=== PATIENT | male | born 1970 | race Caucasian/White ===

== ENCOUNTER 2016-09-19 13:54 | Inpatient (IN) | payer MEDICARE ==
[2016-09-19 14:00] VITALS: BMI 32.3
--- NOTE | 2016-09-19 14:06 | C.PDOC ---
History Of Present Illness 46 year old patient, with a past medical history of anxiety, asthma, cardia arrhythmia, hypercholesterolemia, COPD, pneumonia, pulmonary embolism, and gall bladder disease, presents to the ED complaining of fatigue, gen weakness, and MATIAS worsening over the last couple weeks. Patient also complains of blood with stool for the past year, but denies any associated rectal pain. Patient had a colonoscopy 1 year ago which he says was normal. Also c/o rash for the past month. Patient developed an itchy rash to his groin and scrotum after coming back from [place] 1 month ago. Patient currently does not have a PMD. Patient denies fever, sweats, chest pain, dysuria, or drug use. Patient developed a pulmonary embolism when he was hospitalized a couple of years ago. Patient stopped talking Xarelto about 2 weeks ago. Time Seen by Provider: 09/19/16 14:05 Chief Complaint (Nursing): Weakness/Neurological Deficit History Per: Patient History/Exam Limitations: no limitations Onset/Duration Of Symptoms: Worse Since (today), Other (1 year) Current Symptoms Are (Timing): Still Present Severity: Mild Pain Scale Rating Of: 3 Recent travel outside of the [place]: No Past Medical History Reviewed: Historical Data, Nursing Documentation, Vital Signs Vital Signs: Last Vital Signs Temp 98.6 F 09/19/16 20:51 Pulse 105 H 09/19/16 20:51 Resp 20 09/19/16 20:51 BP 128/80 09/19/16 20:51 Pulse Ox 100 09/19/16 21:10 - Medical History PMH: Anxiety, Asthma, Cardia Arrhythmia, COPD, Gall Bladder Disease, Hypercholesterolemia, Pneumonia, Pulmonary Embolism Surgical History: Cholecystectomy - [facility] Procedures BONE GRAFT NEC (08/11/13) CENTRAL VENOUS CATHETER PLACEMENT WITH GUIDANCE (05/13/13) CLOSED ENDOSCOPIC BIOPSY OF LARGE INTESTINE (04/25/14) CONTINUOUS INVASIVE MECHANICAL VENTILATION =/>96 CONSEC HRS (05/13/13) ENDOSCOPIC BRONCHIAL BX (05/13/13) ENTERAL INFUSION OF CONCENTRATED NUT. SUBSTANCES (05/13/13) EXCISION INTERVERT DISC (08/11/13) FUSION/REFUS OF 2-3 VERTEBRAE (02/19/15) FUSION/REFUS OF 4-8 VERTEBRAE (08/11/13) INSERT ENDOTRACHEAL TUBE (11/16/13) NON-INVASIVE MECHANICAL VENTILATION (05/13/13) OTH CERVICAL FUSION OF ANTERIOR COLUMN, ANTERIOR TECHNIQUE (08/11/13) OTH CERVICAL FUSION OF POSTERIOR COLUMN, POSTERIOR TECHNIQUE (02/19/15) OTHER THERAPEUTIC APHERESIS (02/19/15) SPINAL CANAL EXPLOR NEC (02/19/15) Family History: States: No Known Family Hx - Social History Hx Tobacco Use: No Hx Alcohol Use: No Hx Substance Use: No - Immunization History Hx Tetanus Toxoid Vaccination: No Hx Influenza Vaccination: Yes Hx Pneumococcal Vaccination: Yes Review Of Systems Except As Marked, All Systems Reviewed And Found Negative. Constitutional: Negative for: Fever, Sweats Cardiovascular: Negative for: Chest Pain Respiratory: Positive for: Cough. Negative for: Shortness of Breath Gastrointestinal: Positive for: Other (blood with stool). Negative for: Rectal Pain Genitourinary: Negative for: Dysuria Skin: Positive for: Rash (to legs and back) Neurological: Positive for: Dizziness Physical Exam - Physical Exam Appears: Non-toxic, No Acute Distress Skin: Warm, Dry, Pale, Rash (erythematous on scrotum with satellite lesions in the growing area.) Head: Atraumatic, Normacephalic Eye(s): bilateral: Conjunctiva Pale Neck: Normal ROM, Supple Chest: Symmetrical Cardiovascular: Rhythm Regular (tachycardia) Respiratory: Normal Breath Sounds, No Rales, No Rhonchi, No Wheezing Gastrointestinal/Abdominal: Soft, No Tenderness, No Guarding, No Rebound Rectal: Other (no gross blood, no melena, no mass) Back: Normal Inspection, No CVA Tenderness Extremity: Normal ROM, No Deformity, Other (1+ pitting edema to ankles bilaterally) Neurological/Psych: Oriented x3, Normal Speech, Normal Cognition Gait: Steady ED Course And Treatment - Laboratory Results Result Diagrams: 09/19/16 15:16 09/19/16 15:16 O2 Sat by Pulse Oximetry: 100 (RA) Pulse Ox Interpretation: Normal Medical Decision Making Medical Decision Making: Plan: * Labs * Chest x-ray * EKG EKG: Sinus Tachycardia 104 bpm Normal axis. No acute ischemia Chest X-ray: Interpreted and Read by me nad Disc results w pt and rec for prbc transfusion- he agrees w plan. Case discussed with Dr. Duarte who is aware of the plan and will admit the patient. Disposition Discussed With Dr.: Misty Duarte Comment: He will admit the patient Doctor Will See Patient In The: Hospital Counseled Patient/Family Regarding: Studies Performed, Diagnosis - Disposition Disposition: HOSPITALIZED Disposition Time: 16:17 Condition: GUARDED - Clinical Impression Clinical Impression: Rectal bleeding, Acute blood loss anemia - Scribe Statement The provider has reviewed the documentation as recorded by the Scribe Nely Aguilar Provider Attestation: All medical record entries made by the Scribe were at my direction and personally dictated by me. I have reviewed the chart and agree that the record accurately reflects my personal performance of the history, physical exam, medical decision making, and the department course for this patient. I have also personally directed, reviewed, and agree with the discharge instructions and disposition.
[2016-09-19 15:31] LABS: CHLORIDE 99 mmol/L (98-107)
[2016-09-19 15:32] LABS: BASO % 0.5 % (0.0-2.0); EOS % 0.5 % (0.0-4.0); HEMATOCRIT 20.4 % (35.0-51.0); LYMPH # 1.5 K/uL (1.0-4.3); LYMPH % 19.2 % (20.0-40.0); MEAN CELL VOLUME 65.6 fL (80.0-94.0); MEAN CORPUSCULAR HEMOGLOBIN 18.9 pg (27.0-31.0); MEAN CORPUSCULAR HGB CONC 28.8 g/dL (33.0-37.0); MEAN PLATELET VOLUME 7.2 fL (7.2-11.7); MONO # 0.3 K/uL (0.0-0.8); NRBC % 0.1 % (0.0-2.0); PLATELET COUNT 277 K/uL (130-400); POTASSIUM 3.6 mmol/L (3.6-5.2); RED CELL DISTRIBUTION WIDTH 19.6 % (11.5-14.5); SODIUM 137 mmol/L (132-148); WHITE BLOOD COUNT 7.6 K/uL (4.8-10.8)
[2016-09-19 15:34] LABS: CARBON DIOXIDE 24 mmol/L (22-30); GFR AFRICAN-AMERICAN > 60
[2016-09-19 15:35] LABS: ALB/GLOB RATIO 1.3 (1.0-2.1); ALKALINE PHOSPHATASE 103 U/L (38-126); ALT/SGPT 34 U/L (21-72); AST/SGOT 37 U/L (17-59); BILIRUBIN,TOTAL 0.1 mg/dL (0.2-1.3); BLOOD UREA NITROGEN 9 mg/dL (9-20); CALCIUM 8.3 mg/dl (8.6-10.4); GLUCOSE,RANDOM 85 mg/dL (75-110); TOTAL PROTEIN 7.2 g/dL (6.3-8.3)
[2016-09-19 15:41] LABS: INR 1.2
[2016-09-19 16:18] LABS: URINE BILIRUBIN NEGATIVE (NEGATIVE); URINE BLOOD NEGATIVE (NEGATIVE); URINE COLOR Straw (YELLOW); URINE GLUCOSE (UA) NORMAL (Normal); URINE KETONE NEGATIVE (NEGATIVE); URINE LEUKOCYTE ESTERASE NEG Leu/uL (Negative); URINE PROTEIN NEGATIVE (NEGATIVE); URINE UROBILINOGEN NORMAL mg/dL (0.2-1.0); WBC URINE 1 /hpf (0-5)
[2016-09-19 16:33] LABS: IRON 22 ug/dL (49-181)
--- NOTE | 2016-09-19 16:58 | RAD ---
HISTORY: weak COMPARISON: 02/19/2015 TECHNIQUE: Chest PA and lateral FINDINGS: LUNGS: No infiltrate. Relative radiolucency of left dannielle thorax. Uncertain significance. PLEURA: No significant pleural effusion identified. No pneumothorax apparent. CARDIOVASCULAR: Normal. OSSEOUS STRUCTURES: No significant abnormalities. VISUALIZED UPPER ABDOMEN: Normal. OTHER FINDINGS: None. IMPRESSION: No acute infiltrate.
[2016-09-19] MEDS ORDERED: Albuterol HFA 90 mcg/actuation (8 g) INH PRN (17:16)
--- NOTE | 2016-09-19 17:26 | CP.PCM.HP ---
History of Present Illness - History of Present Illness History of Present Illness: 46 with asthma, pain, chronic rectal bleed admitted with symptomatic anemia, neg stool OB, chronic narcotics Present on Admission - Present on Admission Any Indicators Present on Admission: No Review of Systems - Constitutional Constitutional: Anorexia, Weakness - EENT Eyes: absent: Discharge Ears: absent: Dizziness Nose/Mouth/Throat: absent: Epistaxis - Cardiovascular Cardiovascular: absent: Acrocyanosis, Chest Pain, Diaphoresis, Palpitations, Syncope - Respiratory Respiratory: absent: Cough, Dyspnea, Hemoptysis - Gastrointestinal Gastrointestinal: absent: Abdominal Pain, Hematochezia - Genitourinary Genitourinary: absent: Change in Urinary Stream Past Patient History - Past Medical History & Family History Past Medical History?: Yes - Past Social History Smoking Status: Former Smoker - CARDIAC Hx Cardia Arrhythmia: Yes Hx Hypercholesterolemia: Yes - PULMONARY Hx Asthma: Yes Hx Chronic Obstructive Pulmonary Disease (COPD): Yes Hx Pneumonia: Yes Hx Pulmonary Embolism: Yes - NEUROLOGICAL Hx Neurological Disorder: Yes (COMATOSE 3 DAYS DUE TO PNEUMONIA APR 2013) - HEENT Hx HEENT Problems: No - RENAL Hx Chronic Kidney Disease: No - ENDOCRINE/METABOLIC Hx Endocrine Disorders: No - HEMATOLOGICAL/ONCOLOGICAL Hx Blood Disorders: No Other/Comment: Blood clots - INTEGUMENTARY Hx Dermatological Problems: No - MUSCULOSKELETAL/RHEUMATOLOGICAL Hx Musculoskeletal Disorders: Yes Hx Back Pain: Yes (CERVICAL SPINE FUSION) Hx Falls: No Hx Herniated Disk: Yes Other/Comment: HX: DISPLACEMENT OF LUMBAR DISC - GASTROINTESTINAL Hx Gall Bladder Disease: Yes - GENITOURINARY/GYNECOLOGICAL Hx Genitourinary Disorders: No - PSYCHIATRIC Hx Anxiety: Yes Hx Substance Use: No - SURGICAL HISTORY Hx Cholecystectomy: Yes - ANESTHESIA Hx Anesthesia: Yes Hx Anesthesia Reactions: No Hx Malignant Hyperthermia: No Meds Allergies/Adverse Reactions: Allergies Allergy/AdvReac Type Severity Reaction Status Date / Time No Known Allergies Allergy Verified 02/19/15 21:31 Physical Exam - Constitutional Appears: Non-toxic - Head Exam Head Exam: ATRAUMATIC - Eye Exam Eye Exam: EOMI - ENT Exam ENT Exam: Mucous Membranes Moist - Neck Exam Neck exam: Negative for: Lymphadenopathy, Thyromegaly - Respiratory Exam Respiratory Exam: Clear to Auscultation Bilateral - Cardiovascular Exam Cardiovascular Exam: REGULAR RHYTHM - GI/Abdominal Exam GI & Abdominal Exam: Normal Bowel Sounds. absent: Organomegaly - Rectal Exam Rectal Exam: Deferred - Extremities Exam Extremities exam: Positive for: normal capillary refill. Negative for: calf tenderness - Neurological Exam Neurological exam: Alert, Oriented x3 - Psychiatric Exam Psychiatric exam: Normal Mood - Skin Skin Exam: Dry Results - Vital Signs Recent Vital Signs: Last Vital Signs Temp 98.1 F 09/19/16 17:20 Pulse 104 H 09/19/16 17:20 Resp 20 09/19/16 17:20 BP 142/86 09/19/16 17:20 Pulse Ox 100 09/19/16 17:20 - Labs Result Diagrams: 09/20/16 07:09 09/19/16 15:16 Labs: Laboratory Results - last 24 hr 09/19/16 16:19 Iron 22 L TIBC 595 H % Saturation 4 L Ferritin 4.9 Assessment & Plan (1) Acute blood loss anemia Status: Acute (2) Rectal bleeding Status: Acute (3) Chronic obstructive lung disease Status: Chronic Decision To Admit - Pt Status Changed To: Hospital Disposition Of: Inpatient - Admit Certification Admit to Inpatient:: After my assessment, the patient will require hospitalization for at least two midnights. This is because of the severity of symptoms shown, intensity of services needed, and/or the medical risk in this patient being treated as an outpatient. - InPatient: Physician Admission Certification:: yes - . Bed Request Type: Regular
[2016-09-19] MEDS: Sodium Chloride 0.9% 1,000 ML IV SCH ×2 (19:42→21:53)
[2016-09-19] MEDS: Oxycodone/Acetaminophen 5/325 mg Tab PO PRN (20:45)
[2016-09-20] MEDS: HYDROmorphone 1 mg/ml ISec IVP PRN ×4 (00:47→22:22)
[2016-09-20] MEDS: Sodium Chloride 0.9% 1,000 ML IV SCH ×2 (03:30→13:36)
[2016-09-20] MEDS: Oxycodone/Acetaminophen 5/325 mg Tab PO PRN ×2 (05:34→13:34)
[2016-09-20 07:36] LABS: BASO # 0.1 K/uL (0.0-0.2); BASO % 0.7 % (0.0-2.0); EOS # 0.1 K/uL (0.0-0.7); EOS % 0.8 % (0.0-4.0); HEMATOCRIT 22.1 % (35.0-51.0); LYMPH # 1.4 K/uL (1.0-4.3); LYMPH % 16.5 % (20.0-40.0); MEAN CELL VOLUME 67.4 fL (80.0-94.0); MEAN CORPUSCULAR HEMOGLOBIN 20.2 pg (27.0-31.0); MONO # 0.3 K/uL (0.0-0.8); MONO % 3.4 % (0.0-10.0); NRBC % 0.1 % (0.0-2.0); WHITE BLOOD COUNT 8.2 K/uL (4.8-10.8)
--- NOTE | 2016-09-20 14:21 | CP.PCM.CON ---
<Reed Narvaez - Last Filed: 09/20/16 14:22> History of Present Illness - History of Present Illness History of Present Illness: PGY4 GI Fellow Consult Note Patient is a 46yo male with PMHx significant for pneumonia requiring intubation and extended ICU stay, COPD, HLD, PE previously on coumadin and xarelto (at separate times; nonadherent to both) who presented to the ED with generalized malaise. The patient states that for the past year he has been experiencing daily loose stool and rectal bleeding. He will have upwards of 3-4 episodes per day of watery diarrhea with bright red blood or will pass clots by themselves. He had been previously diagnosed with a PE following an extended hospitalization with pneumonia requiring mechanical ventilation and was placed on coumadin. He was nonadherent to this therapy and was eventually on xarelto ( approximately 4 months [employer]) but also was nonadherent to this as he was concerned over his persistent rectal bleeding. In the weeks leading up to admission, he became more and more fatigued along with noticing some weakness, dizziness, lightheadedness and shortness of breath with exertion and at rest. He denies any abdominal pain. Presently, the patient is very anxious, jittery and cannot sit still even to be examined, sitting and standing and pacing his room. He admits that he regularly uses Trazodone and has a history of anxiety. PMHx: See HPI PSHx: Cholecystectomy, spinal stenosis repair, PCI without intervention FHx: Denies Social: Quit smoking 2 years ago, 20 pack year history; occasional EtOH use, denies illicit drug use Endo: 03/2014 - Colonoscopy - Diverticulosis, hemorrhoids, hyperplastic rectal polyp Review of Systems - Constitutional Constitutional: Fatigue, Lethargy, Weakness. absent: Anorexia, Chills, Fever - EENT Eyes: absent: Change in Vision Nose/Mouth/Throat: absent: Sore Throat - Cardiovascular Cardiovascular: Dyspnea, Dyspnea on Exertion. absent: Chest Pain - Respiratory Respiratory: Dyspnea. absent: Cough, Excessive Mucous Production - Gastrointestinal Gastrointestinal: Hematochezia, Loose Stools, Nausea. absent: Abdominal Pain, Constipation, Cramping, Dyspepsia, Hematemesis, Melena, Odynophagia, Vomiting - Genitourinary Genitourinary: absent: Dysuria, Urinary Frequency, Urinary Urgency - Musculoskeletal Musculoskeletal: absent: Back Pain, Neck Pain - Integumentary Integumentary: absent: New Lesions, Rash - Neurological Neurological: absent: Dizziness, Numbness, Focal Weakness - Psychiatric Psychiatric: absent: Anxiety, Depression - Endocrine Endocrine: absent: Polydipsia, Polyphagia, Polyuria - Hematologic/Lymphatic Hematologic: absent: Easy Bleeding, Easy Bruising, Lymphadenopathy Past Patient History - Past Medical History & Family History Past Medical History?: Yes - Past Social History Smoking Status: Former Smoker - CARDIAC Hx Cardia Arrhythmia: Yes Hx Hypercholesterolemia: Yes - PULMONARY Hx Asthma: Yes Hx Chronic Obstructive Pulmonary Disease (COPD): Yes Hx Pneumonia: Yes Hx Pulmonary Embolism: Yes - NEUROLOGICAL Hx Neurological Disorder: Yes (COMATOSE > a month DUE TO PNEUMONIA APR 2013) - HEENT Hx HEENT Problems: No - RENAL Hx Chronic Kidney Disease: No - ENDOCRINE/METABOLIC Hx Endocrine Disorders: No - HEMATOLOGICAL/ONCOLOGICAL Hx Blood Disorders: No Other/Comment: Blood clots - INTEGUMENTARY Hx Dermatological Problems: No - MUSCULOSKELETAL/RHEUMATOLOGICAL Hx Musculoskeletal Disorders: Yes Hx Back Pain: Yes (CERVICAL SPINE FUSION) Hx Falls: No Hx Herniated Disk: Yes Other/Comment: HX: DISPLACEMENT OF LUMBAR DISC - GASTROINTESTINAL Hx Gall Bladder Disease: Yes - GENITOURINARY/GYNECOLOGICAL Hx Genitourinary Disorders: No - PSYCHIATRIC Hx Anxiety: Yes Hx Substance Use: No - SURGICAL HISTORY Hx Cholecystectomy: Yes (2009) - ANESTHESIA Hx Anesthesia: Yes Hx Anesthesia Reactions: No Hx Malignant Hyperthermia: No Meds Allergies/Adverse Reactions: Allergies Allergy/AdvReac Type Severity Reaction Status Date / Time No Known Allergies Allergy Verified 02/19/15 21:31 - Medications Medications: Current Medications Acetaminophen (Tylenol 325mg Tab) 650 mg PO Q6 PRN PRN Reason: Fever >100.4 F Albuterol (Ventolin Hfa 90 Mcg/Actuation (8 G)) 2 puff INH Q4H PRN PRN Reason: Shortness of Breath Last Admin: 09/20/16 14:05 Dose: 2 puff Docusate Sodium (Colace) 100 mg PO BID [facility]IEL Last Admin: 09/20/16 09:59 Dose: Not Given Hydromorphone HCl (Dilaudid) 1 mg IVP Q6H PRN PRN Reason: Pain, severe (8-10) Last Admin: 09/20/16 09:58 Dose: 1 mg Sodium Chloride (Sodium Chloride 0.9%) 1,000 mls @ 100 mls/hr IV .Q10H [facility]IEL Last Admin: 09/20/16 13:36 Dose: 100 mls/hr Ondansetron HCl (Zofran Inj) 4 mg IVP Q6 PRN PRN Reason: Nausea/Vomiting Oxycodone/Acetaminophen (Percocet 5/325 Mg Tab) 1 tab PO Q4 PRN PRN Reason: Pain, moderate (4-7) Stop: 09/22/16 17:18 Last Admin: 09/20/16 13:34 Dose: 1 tab Fluticasone/Salmeterol (Advair Diskus 250/50) 1 puff IH RBID [facility] Sucralfate (Carafate Tab) 1 gm PO BID [facility] Last Admin: 09/20/16 09:59 Dose: 1 gm Physical Exam - Constitutional Appears: Non-toxic, No Acute Distress - Eye Exam Eye Exam: EOMI, PERRL - ENT Exam ENT Exam: Mucous Membranes Moist - Respiratory Exam Respiratory Exam: Clear to Auscultation Bilateral. absent: Rales, Rhonchi, Wheezes - Cardiovascular Exam Cardiovascular Exam: RRR, +S1, +S2 - GI/Abdominal Exam GI & Abdominal Exam: Distended, Normal Bowel Sounds, Soft. absent: Firm, Guarding, Organomegaly, Rigid, Tenderness - Rectal Exam Rectal Exam: Hemorrhoids (internal). absent: Black Stool, Bloody Stool - Extremities Exam Extremities exam: Positive for: normal inspection. Negative for: pedal edema - Neurological Exam Neurological exam: Alert, Oriented x3 - Psychiatric Exam Psychiatric exam: Anxious - Skin Skin Exam: Dry, Warm Results - Vital Signs Recent Vital Signs: Last Vital Signs Temp 98 F 09/20/16 08:00 Pulse 90 09/20/16 11:36 Resp 20 09/20/16 08:00 BP 126/70 09/20/16 08:00 Pulse Ox 97 09/20/16 08:00 - Labs Result Diagrams: 09/20/16 07:09 09/19/16 15:16 Labs: Laboratory Results - last 24 hr 09/19/16 09/20/16 16:19 07:09 WBC 8.2 RBC 3.28 L Hgb 6.6 L Hct 22.1 L MCV 67.4 L MCH 20.2 L MCHC 30.0 L RDW 21.0 H Plt Count 296 MPV 8.0 Neut % (Auto) 78.6 H Lymph % (Auto) 16.5 L [place] % (Auto) 3.4 Eos % (Auto) 0.8 Baso % (Auto) 0.7 Neut # 6.5 Lymph # 1.4 [place] # 0.3 Eos # 0.1 Baso # 0.1 Iron 22 L TIBC 595 H % Saturation 4 L Ferritin 4.9 Assessment & Plan - Assessment and Plan (Free Text) Assessment: Patient is a 46yo male with PMHx significant for pneumonia requiring intubation and extended ICU stay, COPD, HLD, PE previously on coumadin and xarelto (at separate times; nonadherent to both) who presented to the ED with generalized malaise. -Symptomatic anemia -Subjective hematochezia -Diverticulosis -Anxiety -COPD -H/O provoked PE requiring antcoagulation Plan: -S/P 1 unit PRBc with improvement in HGB -Will order two more units to be transfused at standard rate -Patient to be kept NPO past MN for EGD in AM -Monitor for any further episodes of hematochezia -Patient would benefit from resuming his home medications for anxiety/sleep - Date & Time Date: 09/20/16 Time: 12:10 <Jeffrey Irving - Last Filed: 09/20/16 14:43> Meds - Medications Medications: Current Medications Acetaminophen (Tylenol 325mg Tab) 650 mg PO Q6 PRN PRN Reason: Fever >100.4 F Albuterol (Ventolin Hfa 90 Mcg/Actuation (8 G)) 2 puff INH Q4H PRN PRN Reason: Shortness of Breath Last Admin: 09/20/16 14:05 Dose: 2 puff Docusate Sodium (Colace) 100 mg PO BID ELIEL Last Admin: 09/20/16 09:59 Dose: Not Given Hydromorphone HCl (Dilaudid) 1 mg IVP Q6H PRN PRN Reason: Pain, severe (8-10) Last Admin: 09/20/16 09:58 Dose: 1 mg Sodium Chloride (Sodium Chloride 0.9%) 1,000 mls @ 100 mls/hr IV .Q10H ELIEL Last Admin: 09/20/16 13:36 Dose: 100 mls/hr Ondansetron HCl (Zofran Inj) 4 mg IVP Q6 PRN PRN Reason: Nausea/Vomiting Oxycodone/Acetaminophen (Percocet 5/325 Mg Tab) 1 tab PO Q4 PRN PRN Reason: Pain, moderate (4-7) Stop: 09/22/16 17:18 Last Admin: 09/20/16 13:34 Dose: 1 tab Fluticasone/Salmeterol (Advair Diskus 250/50) 1 puff IH RBID [facility] Sucralfate (Carafate Tab) 1 gm PO BID [facility] Last Admin: 09/20/16 09:59 Dose: 1 gm Results - Vital Signs Recent Vital Signs: Last Vital Signs Temp 98 F 09/20/16 08:00 Pulse 90 09/20/16 11:36 Resp 20 09/20/16 08:00 BP 126/70 09/20/16 08:00 Pulse Ox 97 09/20/16 08:00 - Labs Result Diagrams: 09/20/16 07:09 09/19/16 15:16 Labs: Laboratory Results - last 24 hr 09/19/16 09/20/16 16:19 07:09 WBC 8.2 RBC 3.28 L Hgb 6.6 L Hct 22.1 L MCV 67.4 L MCH 20.2 L MCHC 30.0 L RDW 21.0 H Plt Count 296 MPV 8.0 Neut % (Auto) 78.6 H Lymph % (Auto) 16.5 L [place] % (Auto) 3.4 Eos % (Auto) 0.8 Baso % (Auto) 0.7 Neut # 6.5 Lymph # 1.4 [place] # 0.3 Eos # 0.1 Baso # 0.1 Iron 22 L TIBC 595 H % Saturation 4 L Ferritin 4.9 Attending/Attestation - Attestation I have personally seen and examined this patient.: Yes I have fully participated in the care of the patient.: Yes I have reviewed all pertinent clinical information: Yes Notes (Text): Patient seen and examined with GI fellow. Agree with his note as documented above with the following additions/exceptions. This is a 46 year old male with h/o COPD, PE (previously on coumadin/xarelto, last taken 3 weeks ago), HL, spinal stenosis, diverticulosis who is admitted with severe symptomatic anemia and rectal bleeding. He also complains of intermittent abdominal pain and has history of NSAID usage. Last colonoscopy 2013 showed diverticulosis and hemorrhoids. He has never had prior upper endoscopy. Last known Hb here 15 in 2014, now 6. He has microcytic, iron deficiency anemia. He has no active blood noted on rectal examination. Would recommend PRBC transfusion, monitor H/ H. PPI daily. Keep NPO p MN for EGD tomorrow. 09/20/16 14:38
[2016-09-20] MEDS: Pantoprazole 40 mg EC Tab PO SCH (17:25)
[2016-09-20 17:28] VITALS: RESP 20
[2016-09-20] MEDS ORDERED: Fluticasone-Salmeterol 250-50mcg Diskus IH SCH (20:00)
--- NOTE | 2016-09-20 23:58 | CP.PCM.PN ---
Subjective - Date & Time of Evaluation Date of Evaluation: 09/20/16 Time of Evaluation: 14:00 - Subjective Subjective: seen by GI for endoscopy Objective - Vital Signs/Intake and Output Vital Signs (last 24 hours): Temp Pulse Resp BP Pulse Ox 97.9 F 106 H 20 131/83 95 09/20/16 22:17 09/20/16 22:17 09/20/16 22:17 09/20/16 22:17 09/20/16 16:00 Intake and Output: 09/20/16 09/21/16 18:59 06:59 Intake Total 1300 1325 Balance 1300 1325 - Medications Medications: Current Medications Acetaminophen (Tylenol 325mg Tab) 650 mg PO Q6 PRN PRN Reason: Fever >100.4 F Albuterol (Ventolin Hfa 90 Mcg/Actuation (8 G)) 2 puff INH Q4H PRN PRN Reason: Shortness of Breath Last Admin: 09/20/16 14:05 Dose: 2 puff Docusate Sodium (Colace) 100 mg PO BID [facility] Last Admin: 09/20/16 17:25 Dose: Not Given Hydromorphone HCl (Dilaudid) 1 mg IVP Q6H PRN PRN Reason: Pain, severe (8-10) Last Admin: 09/20/16 22:22 Dose: 1 mg Sodium Chloride (Sodium Chloride 0.9%) 1,000 mls @ 100 mls/hr IV .Q10H [facility] Last Admin: 09/20/16 13:36 Dose: 100 mls/hr Ondansetron HCl (Zofran Inj) 4 mg IVP Q6 PRN PRN Reason: Nausea/Vomiting Oxycodone/Acetaminophen (Percocet 5/325 Mg Tab) 1 tab PO Q4 PRN PRN Reason: Pain, moderate (4-7) Stop: 09/22/16 17:18 Last Admin: 09/20/16 13:34 Dose: 1 tab Pantoprazole Sodium (Protonix Ec Tab) 40 mg PO DAILY [facility] Last Admin: 09/20/16 17:25 Dose: 40 mg Fluticasone/Salmeterol (Advair Diskus 250/50) 1 puff IH RBID [facility] Sucralfate (Carafate Tab) 1 gm PO BID [facility] Last Admin: 03/26/17 09:59 Dose: 1 gm - Labs Labs: 09/20/16 07:09 PT 13.2 SECONDS (9.7-12.2) H 09/19/16 15:16 INR 1.2 09/19/16 15:16 APTT 26 SECONDS (21-34) 09/19/16 15:16 - Constitutional Appears: Non-toxic - Head Exam Head Exam: ATRAUMATIC - Eye Exam Eye Exam: EOMI - ENT Exam ENT Exam: Mucous Membranes Moist - Neck Exam Neck Exam: absent: Lymphadenopathy, Thyromegaly - Respiratory Exam Respiratory Exam: Clear to Ausculation Bilateral. absent: Rales - Cardiovascular Exam Cardiovascular Exam: REGULAR RHYTHM. absent: Murmur - GI/Abdominal Exam GI & Abdominal Exam: Normal Bowel Sounds. absent: Organomegaly - Rectal Exam Rectal Exam: Deferred - Extremities Exam Extremities Exam: Normal Capillary Refill. absent: Calf Tenderness - Neurological Exam Neurological Exam: Alert, Oriented x3 - Psychiatric Exam Psychiatric exam: Normal Mood - Skin Skin Exam: Dry Assessment and Plan (1) Acute blood loss anemia Status: Acute (2) Rectal bleeding Status: Acute (3) Chronic obstructive lung disease Status: Chronic
[2016-09-21] MEDS: Sodium Chloride 0.9% 1,000 ML IV SCH ×3 (00:50→13:59)
[2016-09-21] MEDS: HYDROmorphone 1 mg/ml ISec IVP PRN ×3 (06:12→18:45)
[2016-09-21] MEDS: Pantoprazole 40 mg EC Tab PO SCH (10:55)
[2016-09-21] MEDS ORDERED: Propofol 10 mg/ml Inj (20 ML) ONE (11:21)
[2016-09-21] MEDS ORDERED: Lactated Ringer's 500 ML IV ONE ×2 (11:22)
[2016-09-21] MEDS ORDERED: Lactated Ringer's 1,000 ML IV SCH (11:30)
[2016-09-21] MEDS ORDERED: Lidocaine Hydrochloride 5 ML INJ ONE (11:35)
--- NOTE | 2016-09-21 12:07 | CP.PCM.PN ---
Subjective - Date & Time of Evaluation Date of Evaluation: 09/21/16 Time of Evaluation: 12:00 - Subjective Subjective: Hemoglobin up to 6.6 after transfusion, seen by GI for endoscopy. With pain on narcotics Objective - Vital Signs/Intake and Output Vital Signs (last 24 hours): Temp Pulse Resp BP Pulse Ox 98 F 94 H 20 135/85 96 09/21/16 00:53 09/21/16 00:53 09/21/16 00:53 09/21/16 00:53 09/21/16 00:25 Intake and Output: 09/21/16 09/21/16 06:59 18:59 Intake Total 2675 Balance 2675 - Medications Medications: Current Medications Acetaminophen (Tylenol 325mg Tab) 650 mg PO Q6 PRN PRN Reason: Fever >100.4 F Albuterol (Ventolin Hfa 90 Mcg/Actuation (8 G)) 2 puff INH Q4H PRN PRN Reason: Shortness of Breath Last Admin: 09/20/16 14:05 Dose: 2 puff Bisacodyl (Dulcolax) 10 mg PO ONCE ONE Stop: 09/21/16 16:01 Docusate Sodium (Colace) 100 mg PO BID [facility] Last Admin: 09/21/16 10:55 Dose: Not Given Hydromorphone HCl (Dilaudid) 1 mg IVP Q6H PRN PRN Reason: Pain, severe (8-10) Last Admin: 09/21/16 06:12 Dose: 1 mg Sodium Chloride (Sodium Chloride 0.9%) 1,000 mls @ 100 mls/hr IV .Q10H [facility] Last Admin: 09/21/16 10:56 Dose: Not Given Lactated Ringer's (Lactated Ringer's) 1,000 mls @ 100 mls/hr IV .Q10H [facility] Ondansetron HCl (Zofran Inj) 4 mg IVP Q6 PRN PRN Reason: Nausea/Vomiting Oxycodone/Acetaminophen (Percocet 5/325 Mg Tab) 1 tab PO Q4 PRN PRN Reason: Pain, moderate (4-7) Stop: 09/22/16 17:18 Last Admin: 09/20/16 13:34 Dose: 1 tab Pantoprazole Sodium (Protonix Ec Tab) 40 mg PO DAILY [facility] Last Admin: 09/21/16 10:55 Dose: Not Given Polyethylene Glycol/Electrolytes (Golytely) 4,000 ml PO ONCE ONE Stop: 09/21/16 18:01 Fluticasone/Salmeterol (Advair Diskus 250/50) 1 puff IH RBID [facility] Sucralfate (Carafate Tab) 1 gm PO BID [facility] Last Admin: 09/20/16 09:59 Dose: 1 gm - Labs Labs: 09/20/16 07:09 PT 13.2 SECONDS (9.7-12.2) H 09/19/16 15:16 INR 1.2 09/19/16 15:16 APTT 26 SECONDS (21-34) 09/19/16 15:16 - Constitutional Appears: Non-toxic - Head Exam Head Exam: ATRAUMATIC - Eye Exam Eye Exam: EOMI - ENT Exam ENT Exam: Mucous Membranes Moist - Neck Exam Neck Exam: absent: Lymphadenopathy, Thyromegaly - Respiratory Exam Respiratory Exam: Clear to Ausculation Bilateral. absent: Rales - Cardiovascular Exam Cardiovascular Exam: REGULAR RHYTHM, Murmur - GI/Abdominal Exam GI & Abdominal Exam: Normal Bowel Sounds. absent: Organomegaly - Rectal Exam Rectal Exam: Deferred - Neurological Exam Neurological Exam: Alert, Oriented x3 - Psychiatric Exam Psychiatric exam: Normal Mood - Skin Skin Exam: Dry Assessment and Plan (1) Acute blood loss anemia Status: Acute (2) Rectal bleeding Status: Acute (3) Chronic obstructive lung disease Status: Chronic
[2016-09-21 14:20] LABS: BASO % 0.3 % (0.0-2.0); EOS # 0.1 K/uL (0.0-0.7); EOS % 1.1 % (0.0-4.0); HEMATOCRIT 28.3 % (35.0-51.0); LYMPH # 1.3 K/uL (1.0-4.3); LYMPH % 16.8 % (20.0-40.0); MEAN CORPUSCULAR HEMOGLOBIN 21.2 pg (27.0-31.0); MEAN CORPUSCULAR HGB CONC 30.2 g/dL (33.0-37.0); MEAN PLATELET VOLUME 7.7 fL (7.2-11.7); MONO # 0.3 K/uL (0.0-0.8); MONO % 3.5 % (0.0-10.0); NRBC % 0.2 % (0.0-2.0); RED CELL DISTRIBUTION WIDTH 22.5 % (11.5-14.5)
[2016-09-21 14:27] LABS: CHLORIDE 94 mmol/L (98-107)
[2016-09-21 14:28] LABS: POTASSIUM 3.8 mmol/L (3.6-5.2); SODIUM 135 mmol/L (132-148)
[2016-09-21 14:29] LABS: MEAN CELL VOLUME 70.4 fL (80.0-94.0)
[2016-09-21 14:30] LABS: ALB/GLOB RATIO 1.2 (1.0-2.1); ALKALINE PHOSPHATASE 123 U/L (38-126); AST/SGOT 41 U/L (17-59); BILIRUBIN,TOTAL 0.4 mg/dL (0.2-1.3); BLOOD UREA NITROGEN 10 mg/dL (9-20); CARBON DIOXIDE 24 mmol/L (22-30); GFR AFRICAN-AMERICAN > 60; TOTAL PROTEIN 7.4 g/dL (6.3-8.3)
[2016-09-21 14:31] LABS: ALT/SGPT 34 U/L (21-72); CALCIUM 8.5 mg/dl (8.6-10.4); GLUCOSE,RANDOM 137 mg/dL (75-110)
[2016-09-21] MEDS ORDERED: Bisacodyl 5mg EC Tab PO ONE (16:00)
[2016-09-21] MEDS: Oxycodone/Acetaminophen 5/325 mg Tab PO PRN (16:03)
[2016-09-21] MEDS ORDERED: Peg-Electrolyte Oral Soln 4L (Golytely) PO ONE (18:00)
[2016-09-22] MEDS: HYDROmorphone 1 mg/ml ISec IVP PRN ×3 (01:03→16:50)
[2016-09-22] MEDS: Sodium Chloride 0.9% 1,000 ML IV SCH ×2 (01:07→10:47)
[2016-09-22 07:37] LABS: BASO # 0.1 K/uL (0.0-0.2); BASO % 0.7 % (0.0-2.0); EOS # 0.1 K/uL (0.0-0.7); EOS % 1.2 % (0.0-4.0); HEMATOCRIT 26.3 % (35.0-51.0); LYMPH # 1.2 K/uL (1.0-4.3); MEAN CELL VOLUME 70.6 fL (80.0-94.0); MEAN CORPUSCULAR HEMOGLOBIN 21.6 pg (27.0-31.0); MEAN CORPUSCULAR HGB CONC 30.6 g/dL (33.0-37.0); MEAN PLATELET VOLUME 7.8 fL (7.2-11.7); MONO # 0.2 K/uL (0.0-0.8); MONO % 3.3 % (0.0-10.0); RED CELL DISTRIBUTION WIDTH 22.9 % (11.5-14.5); WHITE BLOOD COUNT 6.9 K/uL (4.8-10.8)
[2016-09-22 07:45] LABS: CHLORIDE 96 mmol/L (98-107)
[2016-09-22 07:46] LABS: INR 1.1; POTASSIUM 4.1 mmol/L (3.6-5.2); SODIUM 137 mmol/L (132-148)
[2016-09-22 07:48] LABS: GFR AFRICAN-AMERICAN > 60
[2016-09-22 07:49] LABS: ALB/GLOB RATIO 1.2 (1.0-2.1); ALKALINE PHOSPHATASE 117 U/L (38-126); ALT/SGPT 37 U/L (21-72); AST/SGOT 46 U/L (17-59); BILIRUBIN,TOTAL 0.2 mg/dL (0.2-1.3); BLOOD UREA NITROGEN 9 mg/dL (9-20); CALCIUM 8.7 mg/dl (8.6-10.4); CARBON DIOXIDE 27 mmol/L (22-30); GLUCOSE,RANDOM 118 mg/dL (75-110); TOTAL PROTEIN 6.8 g/dL (6.3-8.3)
[2016-09-22] MEDS: Pantoprazole 40 mg EC Tab PO SCH (10:36)
[2016-09-22] MEDS ORDERED: Propofol 10 mg/ml Inj (20 ML) ONE (11:55)
[2016-09-22] MEDS ORDERED: Midazolam 2 MG/2 ML VIAL ONE (11:55)
--- NOTE | 2016-09-22 12:25 | CP.PCM.PN ---
Subjective - Date & Time of Evaluation Date of Evaluation: 09/22/16 Time of Evaluation: 12:00 - Subjective Subjective: Hemoglobin up to 8, follow-up with GI, endoscopy is unremarkable no evidence of bleed, questionable need for colonoscopy Objective - Vital Signs/Intake and Output Vital Signs (last 24 hours): Temp Pulse Resp BP Pulse Ox 97.5 F L 99 H 20 143/77 97 09/22/16 08:26 09/22/16 08:26 09/22/16 08:26 09/22/16 08:26 09/22/16 08:26 Intake and Output: 09/22/16 09/22/16 06:59 18:59 Intake Total 1600 250 Balance 1600 250 - Medications Medications: Current Medications Acetaminophen (Tylenol 325mg Tab) 650 mg PO Q6 PRN PRN Reason: Fever >100.4 F Albuterol (Ventolin Hfa 90 Mcg/Actuation (8 G)) 2 puff INH Q4H PRN PRN Reason: Shortness of Breath Last Admin: 09/20/16 14:05 Dose: 2 puff Docusate Sodium (Colace) 100 mg PO BID [facility] Last Admin: 09/22/16 10:36 Dose: Not Given Hydromorphone HCl (Dilaudid) 1 mg IVP Q6H PRN PRN Reason: Pain, severe (8-10) Last Admin: 09/22/16 10:50 Dose: 1 mg Sodium Chloride (Sodium Chloride 0.9%) 1,000 mls @ 100 mls/hr IV .Q10H [facility] Last Admin: 09/22/16 10:47 Dose: 100 mls/hr Lactated Ringer's (Lactated Ringer's) 1,000 mls @ 100 mls/hr IV .Q10H [facility] Ondansetron HCl (Zofran Inj) 4 mg IVP Q6 PRN PRN Reason: Nausea/Vomiting Last Admin: 09/21/16 22:37 Dose: 4 mg Oxycodone/Acetaminophen (Percocet 5/325 Mg Tab) 1 tab PO Q4 PRN PRN Reason: Pain, moderate (4-7) Stop: 09/22/16 17:18 Last Admin: 09/21/16 16:03 Dose: 1 tab Pantoprazole Sodium (Protonix Ec Tab) 40 mg PO DAILY [facility] Last Admin: 09/22/16 10:36 Dose: Not Given Fluticasone/Salmeterol (Advair Diskus 250/50) 1 puff IH RBID [facility] Sucralfate (Carafate Tab) 1 gm PO BID [facility] Last Admin: 09/20/16 09:59 Dose: 1 gm - Labs Labs: 09/22/16 07:17 09/22/16 07:17 PT 13.0 SECONDS (9.7-12.2) H 09/22/16 07:17 INR 1.1 09/22/16 07:17 APTT 26 SECONDS (21-34) 09/19/16 15:16 - Constitutional Appears: Non-toxic - Head Exam Head Exam: ATRAUMATIC - Eye Exam Eye Exam: EOMI - ENT Exam ENT Exam: Mucous Membranes Moist - Neck Exam Neck Exam: absent: Lymphadenopathy, Thyromegaly - Respiratory Exam Respiratory Exam: Clear to Ausculation Bilateral. absent: Rales - Cardiovascular Exam Cardiovascular Exam: REGULAR RHYTHM. absent: Murmur - GI/Abdominal Exam GI & Abdominal Exam: Normal Bowel Sounds. absent: Organomegaly - Rectal Exam Rectal Exam: Deferred - Extremities Exam Extremities Exam: Normal Capillary Refill. absent: Calf Tenderness - Neurological Exam Neurological Exam: Alert, Oriented x3 - Psychiatric Exam Psychiatric exam: Normal Mood - Skin Skin Exam: Dry Assessment and Plan (1) Acute blood loss anemia Status: Acute (2) Rectal bleeding Status: Acute (3) Chronic obstructive lung disease Status: Chronic
[2016-09-22 17:17] VITALS: O2SAT 95
--- NOTE | 2016-09-22 19:16 | CP.PCM.DIS ---
Provider - Provider Date of Admission: 09/19/16 16:17 Attending physician: Misty Duarte MD Time Spent in preparation of Discharge (in minutes): 20 Diagnosis - Discharge Diagnosis (1) Acute blood loss anemia Status: Acute (2) Rectal bleeding Status: Acute (3) Chronic obstructive lung disease Status: Chronic Hospital Course - Lab Results Lab Results: Most Recent Lab Values WBC 6.9 K/uL (4.8-10.8) 09/22/16 07:17 RBC 3.73 Mil/uL (4.40-5.90) L 09/22/16 07:17 Hgb 8.0 g/dL (12.0-18.0) L 09/22/16 07:17 Hct 26.3 % (35.0-51.0) L 09/22/16 07:17 MCV 70.6 fL (80.0-94.0) L 09/22/16 07:17 MCH 21.6 pg (27.0-31.0) L 09/22/16 07:17 MCHC 30.6 g/dL (33.0-37.0) L 09/22/16 07:17 RDW 22.9 % (11.5-14.5) H 09/22/16 07:17 Plt Count 264 K/uL (130-400) 09/22/16 07:17 MPV 7.8 fL (7.2-11.7) 09/22/16 07:17 Neut % (Auto) 77.8 % (50.0-75.0) H 09/22/16 07:17 Lymph % (Auto) 17.0 % (20.0-40.0) L 09/22/16 07:17 [place] % (Auto) 3.3 % (0.0-10.0) 09/22/16 07:17 Eos % (Auto) 1.2 % (0.0-4.0) 09/22/16 07:17 Baso % (Auto) 0.7 % (0.0-2.0) 09/22/16 07:17 Neut # 5.3 K/uL (1.8-7.0) 09/22/16 07:17 Lymph # 1.2 K/uL (1.0-4.3) 09/22/16 07:17 [place] # 0.2 K/uL (0.0-0.8) 09/22/16 07:17 Eos # 0.1 K/uL (0.0-0.7) 09/22/16 07:17 Baso # 0.1 K/uL (0.0-0.2) 09/22/16 07:17 Differential Comment Y 09/19/16 15:16 PT 13.0 SECONDS (9.7-12.2) H 09/22/16 07:17 INR 1.1 09/22/16 07:17 APTT 26 SECONDS (21-34) 09/19/16 15:16 Sodium 137 mmol/L (132-148) 09/22/16 07:17 Potassium 4.1 mmol/L (3.6-5.2) 09/22/16 07:17 Chloride 96 mmol/L (98-107) L 09/22/16 07:17 Carbon Dioxide 27 mmol/L (22-30) 09/22/16 07:17 Anion Gap 17 (10-20) 09/22/16 07:17 BUN 9 mg/dL (9-20) 09/22/16 07:17 Creatinine 0.8 MG/DL (0.8-1.5) 09/22/16 07:17 Est GFR ( Amer) > 60 09/22/16 07:17 Est GFR (Non-Af Amer) > 60 09/22/16 07:17 Random Glucose 118 mg/dL (75-110) H 09/22/16 07:17 Calcium 8.7 mg/dl (8.6-10.4) 09/22/16 07:17 Iron 22 ug/dL (49-181) L 09/19/16 16:19 TIBC 595 ug/dL (250-450) H 09/19/16 16:19 % Saturation 4 (20-55) L 09/19/16 16:19 Ferritin 4.9 ng/mL 09/19/16 16:19 Total Bilirubin 0.2 mg/dL (0.2-1.3) 09/22/16 07:17 AST 46 U/L (17-59) 09/22/16 07:17 ALT 37 U/L (21-72) 09/22/16 07:17 Alkaline Phosphatase 117 U/L (38-126) 09/22/16 07:17 Troponin I < 0.0120 ng/mL (0.00-0.120) 09/19/16 15:16 Total Protein 6.8 g/dL (6.3-8.3) 09/22/16 07:17 Albumin 3.8 g/dL (3.5-5.0) 09/22/16 07:17 Globulin 3.0 gm/dL (2.2-3.9) 09/22/16 07:17 Albumin/Globulin Ratio 1.2 (1.0-2.1) 09/22/16 07:17 Urine Color Straw (YELLOW) 09/19/16 15:58 Urine Clarity Clear (Clear) 09/19/16 15:58 Urine pH 5.0 (5.0-8.0) 09/19/16 15:58 Ur Specific [place] 1.015 (1.003-1.030) 09/19/16 15:58 Urine Protein Negative mg/dL (NEGATIVE) 09/19/16 15:58 Urine Glucose (UA) Normal mg/dL (Normal) 09/19/16 15:58 Urine Ketones Negative mg/dL (NEGATIVE) 09/19/16 15:58 Urine Blood Negative (NEGATIVE) 09/19/16 15:58 Urine Nitrate Negative (NEGATIVE) 09/19/16 15:58 Urine Bilirubin Negative (NEGATIVE) 09/19/16 15:58 Urine Urobilinogen Normal mg/dL (0.2-1.0) 09/19/16 15:58 Ur Leukocyte Esterase Neg [place]/uL (Negative) 09/19/16 15:58 Urine WBC (Auto) 1 /hpf (0-5) 09/19/16 15:58 Ur Squamous Epith Cells < 1 /hpf (0-5) 09/19/16 15:58 Stool Occult Blood Negative (NEGATIVE) 09/19/16 15:24 Blood Type A POSITIVE 09/22/16 14:52 Antibody Screen Negative 09/22/16 14:52 - Hospital Course Hospital Course: 46 admitted with anemia, reported neg prior colonoscopy. seen by GI transfused stable hemodynamically, EGD ok poor prep for colon, to f/u as outpt Discharge Exam - Head Exam Head Exam: ATRAUMATIC - Eye Exam Eye Exam: EOMI - ENT Exam ENT Exam: Mucous Membranes Moist - Neck Exam Neck exam: Full Rom - Respiratory Exam Respiratory Exam: NORMAL BREATHING PATTERN. absent: Rales - Cardiovascular Exam Cardiovascular Exam: REGULAR RHYTHM - GI/Abdominal Exam GI & Abdominal Exam: Normal Bowel Sounds. absent: Organomegaly - Rectal Exam Rectal Exam: Deferred - Extremities Exam Extremities exam: normal capillary refill - Neurological Exam Neurological exam: Alert, Oriented x3 - Psychiatric Exam Psychiatric exam: Normal Mood - Skin Skin Exam: Dry Discharge Plan - Follow Up Plan Condition: GUARDED Disposition: HOME/ ROUTINE
[2016-09-22 21:06] VITALS: BP 141/82; PULSE 98; TEMP 98.2
== END 2016-09-22 21:25 | disposition home or self-care (01) | DRG 378 ==
LOC: C.ER 13:54 → C.9E 16:17 → C.3T 18:02
PROVIDERS: ADMIT Internal Medicine Cardiovascular Disease; ATTEND Internal Medicine Cardiovascular Disease
PROC: 30233N1 Transfusion of Nonautologous Red Blood Cells into Peripheral Vein, Percutaneous Approach (ICD-10-PCS; 2016-09-19)
PROC: 0DB68ZX Excision of Stomach, Via Natural or Artificial Opening Endoscopic, Diagnostic (ICD-10-PCS; 2016-09-21)
PROC: 0DB98ZX Excision of Duodenum, Via Natural or Artificial Opening Endoscopic, Diagnostic (ICD-10-PCS; principal; 2016-09-21 11:15)
PROC: 0DJD8ZZ Inspection of Lower Intestinal Tract, Via Natural or Artificial Opening Endoscopic (ICD-10-PCS; 2016-09-22)
DX: K62.5 Hemorrhage of anus and rectum (principal); D62 Acute posthemorrhagic anemia; J44.9 Chronic obstructive pulmonary disease, unspecified; K29.60 Other gastritis without bleeding; K31.89 Other diseases of stomach and duodenum; K64.8 Other hemorrhoids; K21.0 Gastro-esophageal reflux disease with esophagitis; J45.909 Unspecified asthma, uncomplicated; R63.0 Anorexia; R53.1 Weakness; Z86.711 Personal history of pulmonary embolism; Z87.01 Personal history of pneumonia (recurrent); Z87.891 Personal history of nicotine dependence; Z90.49 Acquired absence of other specified parts of digestive tract

== ENCOUNTER 2016-10-12 07:50 | Day surgery (SDC) | payer MEDICARE ==
[2016-10-12] MEDS ORDERED: Propofol 10 mg/ml Inj (20 ML) ONE (09:53)
[2016-10-12] MEDS ORDERED: Lactated Ringer's 500 ML IV ONE (09:56)
[2016-10-12 10:30] VITALS: TEMP 98.4
[2016-10-12 11:03] VITALS: O2SAT 98
[2016-10-12 11:46] VITALS: BP 120/70; PULSE 90; RESP 18
== END 2016-10-12 11:40 | disposition home or self-care (01) ==
LOC: C.ENDO 07:50
PROVIDERS: ATTEND Internal Medicine Gastroenterology
DX: K57.30 Diverticulosis of large intestine without perforation or abscess without bleeding (principal); K64.8 Other hemorrhoids
CPT/HCPCS: 45378; J2704; J7120

== ENCOUNTER 2016-10-12 12:20 | Emergency (ER) | payer MEDICARE ==
[2016-10-12 12:32] VITALS: BP 135/90; PULSE 101; RESP 20; TEMP 97.7; O2SAT 98
--- NOTE | 2016-10-12 13:50 | C.PDOC ---
History Of Present Illness 46 y/o male presents to the ED complaining of scant bright red blood per rectum after colonoscopy today with Dr. Irving. Patient has history of bright red blood per rectum and symptomatic anemia requiring blood transfusions. Note that the patient takes Vicodin two tabs per day for chronic neck pain. Patient denies fever, abdominal pain, chest pain, or other complaints. Time Seen by Provider: 10/12/16 13:26 Chief Complaint (Nursing): Chest Pain History Per: Patient History/Exam Limitations: no limitations Onset/Duration Of Symptoms: Persistent Current Symptoms Are (Timing): Still Present Recent travel outside of the [place]: No Past Medical History Reviewed: Historical Data, Nursing Documentation, Vital Signs Vital Signs: Last Vital Signs Temp 97.7 F 10/12/16 12:32 Pulse 101 H 10/12/16 12:32 Resp 20 10/12/16 12:32 BP 135/90 10/12/16 12:32 Pulse Ox 98 10/12/16 14:48 - Medical History PMH: Anemia, Anxiety, Asthma, Cardia Arrhythmia (Tachycardia), COPD, Gall Bladder Disease, Hypercholesterolemia, Pneumonia, Pulmonary Embolism Surgical History: Cholecystectomy, Endoscopy - [facility] Procedures BONE GRAFT NEC (08/11/13) CENTRAL VENOUS CATHETER PLACEMENT WITH GUIDANCE (05/13/13) CLOSED ENDOSCOPIC BIOPSY OF LARGE INTESTINE (04/25/14) CONTINUOUS INVASIVE MECHANICAL VENTILATION =/>96 CONSEC HRS (05/13/13) ENDOSCOPIC BRONCHIAL BX (05/13/13) ENTERAL INFUSION OF CONCENTRATED NUT. SUBSTANCES (05/13/13) EXCISION INTERVERT DISC (08/11/13) EXCISION OF DUODENUM, ENDO, DIAGN (09/19/16) EXCISION OF STOMACH, ENDO, DIAGN (09/19/16) FUSION/REFUS OF 2-3 VERTEBRAE (02/19/15) FUSION/REFUS OF 4-8 VERTEBRAE (08/11/13) INSERT ENDOTRACHEAL TUBE (05/13/13) INSPECTION OF LOWER INTESTINAL TRACT, ENDO (09/19/16) NON-INVASIVE MECHANICAL VENTILATION (05/13/13) OTH CERVICAL FUSION OF ANTERIOR COLUMN, ANTERIOR TECHNIQUE (08/11/13) OTH CERVICAL FUSION OF POSTERIOR COLUMN, POSTERIOR TECHNIQUE (02/19/15) OTHER THERAPEUTIC APHERESIS (02/19/15) SPINAL CANAL EXPLOR NEC (02/19/15) TRANSFUSE NONAUT RED BLOOD CELLS IN PERIPH VEIN, PERC (09/19/16) Family History: States: Unknown Family Hx - Social History Hx Tobacco Use: No Hx Alcohol Use: Yes Hx Substance Use: No - Immunization History Hx Tetanus Toxoid Vaccination: No Hx Influenza Vaccination: Yes Hx Pneumococcal Vaccination: Yes Review Of Systems Except As Marked, All Systems Reviewed And Found Negative. Constitutional: Negative for: Fever Cardiovascular: Negative for: Chest Pain Gastrointestinal: Positive for: Other (bright red blood per rectum). Negative for: Abdominal Pain Musculoskeletal: Positive for: Neck Pain (chronic) Physical Exam - Physical Exam Appears: Non-toxic, No Acute Distress, Other (morbidly obese) Skin: Normal Color, Warm, Dry Head: Atraumatic, Normacephalic Eye(s): bilateral: Other (pinpoint pupils) Neck: Normal ROM, No Midline Cervical Tenderness, Supple Chest: Symmetrical Cardiovascular: Rhythm Regular Respiratory: Normal Breath Sounds, No Rales, No Rhonchi, No Wheezing Gastrointestinal/Abdominal: Normal Exam, Soft, No Tenderness Rectal: Hemorrhoids (internal hemorrhoids felt without bleeding; external hemorrhoids without bleeding), Other (scant yellow/brown liquid stool) Back: Normal Inspection, No CVA Tenderness Extremity: Normal ROM Neurological/Psych: Oriented x3, Normal Speech, Normal Cognition ED Course And Treatment O2 Sat by Pulse Oximetry: 98 (ra) Pulse Ox Interpretation: Normal Medical Decision Making Medical Decision Making: brbpr after colonoscopy this AM with NO bleeding noted on colonoscopy notable for internal hemorroids rectal exam now in ED shows yellow/brown BLOODLESS stool (scant/semiformed) c/w colonoscopy from a few hours ago. pt and placement coordinator prefer outpatient eval for anemia Explained probably small internal hemorroidal bleeding (now obviously resolved) aggravated by colonoscopy earlier today. nO s/s of significant anemia and pt refuses blood tests today [place] [employer] reviewed: extensive Vicodin regimen for cervical neck pain 5/300 x 60/mo persistent Fe Def anemia latest hgb 8.0 09/22/16, pt noted to have had blood tranfusions but not on Fe supplements. Consider weighing iron supplements with typical constipation which makes internal hemorroids worse, or consider definitive internal hemorroid therapies. Difficult interrogatory with pt and placement coordinator at bedside- argumentative and frustrated- eloped from ED prior to d/c instructions and to ask of already on Fe supplements. Disposition Doctor Will See Patient In The: Office Counseled Patient/Family Regarding: Studies Performed, Diagnosis - Disposition Referrals: Jeffrey Irving MD [Staff Provider] - Disposition: ELOPEMENT - ER ONLY Disposition Time: 13:50 Condition: GOOD Additional Instructions: follow-up for outpatient lab tests at your discretion Follow-up with [facility] Instructions: Hemorrhoids (ED), Rectal Bleeding (ED), Iron Deficiency Anemia ( ED) - Clinical Impression Clinical Impression: BRBPR (bright red blood per rectum) - Scribe Statement The provider has reviewed the documentation as recorded by the Scribe (Shira Man) Provider Attestation: All medical record entries made by the Scribe were at my direction and personally dictated by me. I have reviewed the chart and agree that the record accurately reflects my personal performance of the history, physical exam, medical decision making, and the department course for this patient. I have also personally directed, reviewed, and agree with the discharge instructions and disposition.
== END 2016-10-12 13:45 | disposition left against medical advice (07) ==
LOC: C.ER 12:20
DX: K62.5 Hemorrhage of anus and rectum (principal)